=== PATIENT | female | born 1945 | race Caucasian/White ===

== ENCOUNTER → 2016-11-29 | Outpatient (CLI) | payer MEDICARE, OTHER ==
[~2016-11-29] MED LIST: BACITRACIN15 G1 TP; DAILY MULTIPLE1 EAC1 PO; HCTZ12.5 MG PO; NORCO 5-325 TA1 EACH PO; OMEGA-3 DPS1000 MG PO; PRESERVISION A1 EAC1 PO; VITAMIN D31000 UNIT PO; WELCHOL625 MG PO; ZETIA10 MG PO
== END | disposition home or self-care (01) ==
LOC: PTH.S 13:05
DX: Z01.818 Encounter for other preprocedural examination (principal); I10 Essential (primary) hypertension

== ENCOUNTER 2016-12-04 06:30 | Observation (INO) | payer MEDICARE, OTHER ==
[~2016-12-04] VITALS: Ht 160 cm; Wt 79.1 kg
--- NOTE | 2016-12-06 07:58 | OR ---
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 OPERATION: Right thyroid lobectomy. Excisional biopsy, left thyroid nodule. ANESTHESIA: General oral endotracheal. BLOOD LOSS: 30 mL. COMPLICATIONS: None. DRAINS: 7 mm Miguel Ángel-Laboy. DESCRIPTION OF PROCEDURE: With the patient in supine position under general endotracheal anesthesia, her eyes were taped. The neck was extended slightly. The anterior neck was prepped with ChloraPrep, allowed 3 minutes to dry. The patient was draped sterilely. Incision was made following natural skin crease low in the neck through skin, subcutaneous tissue, and platysma muscle with skin flaps elevated superiorly and inferiorly, subplatysmally. The strap muscles were then in the midline exposing the thyroid isthmus. The right thyroid lobe was then exposed by retraction of the strap muscles laterally. Blunt dissection was used to separate the tissues from the capsule of the thyroid, and small afferent and efferent vessels were treated by clamping and coagulation. During the dissection, the inferior and superior thyroid artery and vein and middle thyroid veins were identified, clamped, divided, and coagulated. The gland was rotated medially. Tissue consistent with both the superior and inferior parathyroid glands were identified and preserved during the dissection. The recurrent laryngeal nerve was identified, its identity and function confirmed by NIM-2 stimulation. The gland was pedicled at Lucien's ligament which was transected and the gland pedicled at the isthmus. The isthmus was transected with electrocautery, and the right lobe was sent for frozen section analysis. The wound was irrigated with saline. Hemostasis was assured by clamping and coagulation. Again, the recurrent laryngeal nerve was tested and its function was intact. Frozen section revealed the nodule to be most consistent with a benign follicular neoplasm. The left lobe was then exposed by palpation. The nodule was identified and it was excised from the surrounding thyroid tissue using electrocautery. The remainder of the lobe was left intact including the superior and inferior thyroid vessels. The nodule was sent for histologic ADMIT: 12/04/2016 RM/LOC: [facility] MR#: [id number] [address] [place] [id number] ROSY LEONARD [address] [place] [address] Operative/Delivery Room Report SEX: F AGE: 71 : 1945 examination by frozen section, which again, showed changes most consistent with benign follicular neoplasm. Therefore, the left lobe was not removed. The biopsy site was closed with two interrupted simple stitches of 3-0 chromic catgut. The wound was then closed over 7 mm Miguel Ángel-Laboy drain that was brought out the right side of strap muscles and incision. The strap muscles were closed in the midline with 3-0 catgut. The platysma layer closed with interrupted simple inverted 3-0 chromic catgut, and the skin was closed with a running horizontal mattress suture. The drain was sutured to the skin with silk, and the operation completed. A thyroid dressing applied. She tolerated the procedure very well. She emerged from general anesthesia in the operating room, was extubated in the operating room, and transferred to the recovery room in good condition. John Saravia MD/ eric JOB #: [id number] CC: John Saravia, Attending Physician Suzi Caraballo, Family Physician
[2016-12-06] MEDS ORDERED: ZETIA10 MG PO (08:28)
[2016-12-06] MEDS ORDERED: OMEGA-3 DPS1000 MG PO (08:28)
[2016-12-06] MEDS ORDERED: WELCHOL625 MG PO (08:28)
[2016-12-06] MEDS ORDERED: HCTZ12.5 MG PO (08:28)
[2016-12-06] MEDS ORDERED: VITAMIN D31000 UNIT PO (08:29)
[2016-12-06] MEDS ORDERED: DAILY MULTIPLE1 EAC1 PO (08:29)
[2016-12-06] MEDS ORDERED: PRESERVISION A1 EAC1 PO (08:29)
[2016-12-06] MEDS ORDERED: BACITRACIN15 G1 TP (08:30)
[2016-12-06] MEDS ORDERED: NORCO 5-325 TA1 EACH PO (08:30)
--- NOTE | 2016-12-18 10:16 | HP ---
ADMIT: 12/04/2016 RM/LOC: [facility] MR#: [id number] [address] [address] [place] [address] Pre-OP History and Physical SEX: F AGE: 71 : 1945 DATE OF SERVICE: HISTORY: Rosy is 71 years old. She is admitted for right thyroid lobectomy with frozen section and possible total thyroidectomy. She is found to have a thyroid nodule on CT scan of her chest which was performed in evaluation of an aortic aneurysm which was found to have been stable. The thyroid gland was ultimately evaluated by ultrasound, which showed bilateral thyroid nodules. A needle biopsy was performed of the right thyroid nodule with findings consistent with follicular neoplasm and atypia suspicious of papillary carcinoma. She has had no past radiation exposure, there is no family history of thyroid cancer, and she is euthyroid. The significance of the FNA findings were discussed. Excisional biopsy is recommended. We discussed the rationale and the risks, including risks of anesthesia, recurrent laryngeal nerve parathyroid gland postop dysfunction. We discussed resultant surgical scar and risk of general anesthesia, which she is in good understanding and acceptance of and admitted for general anesthesia. MEDICATIONS: Medications prior: 1. Welchol. 2. Zetia. 3. HCTZ. 4. Fish oil. 5. Vitamin D3. 6. PreserVision. 7. Multiple vitamins. ALLERGIES: PENICILLIN. PAST MEDICAL HISTORY: Surgery, lower back, for herniated disk, tonsillectomy, and ELVeS surgery for varicose veins. REVIEW OF SYSTEMS: Positive for history of asthma and hypertension. She has a stable thoracic aortic aneurysm. She has no known GI, , hematologic, or neurologic disorders. SOCIAL HISTORY: She drinks alcohol in the form of wine occasionally but does not drink caffeine, does not use tobacco. FAMILY HISTORY: No known anesthetic complications, coagulopathies, or chronic thyroid disease. PHYSICAL EXAMINATION: GENERAL: A 71-year-old, alert, cooperative, no acute distress. 5 feet 3-3/4 inches, weight 165 pounds. HEENT: Pupils are equal. Conjunctivae clear. No proptosis, nystagmus, nor lid retraction. Ear canals, TMs, and middle ears normal. Nose, mouth, pharynx clear. Larynx, good symmetry, structure, and function. NECK: No palpable masses or adenopathy. Thyroid nodules are nonpalpable. ADMIT: 12/04/2016 RM/LOC: [facility] MR#: [id number] [address] [address] ROSY LEONARD [address] [place] [address] Pre-OP History and Physical SEX: F AGE: 71 : 1945 LUNGS: Clear. HEART: Rhythm regular. EXTREMITIES: Normal. IMPRESSION: 1. Thyroid nodule, bilateral, with right thyroid nodule suspicious of papillary thyroid carcinoma by FNA. 2. History of asthma. 3. History of hypertension. 4. Thoracic aortic aneurysm, stable by recent CT scan evaluation. PLAN: Right thyroid lobectomy with frozen section, possible total thyroidectomy. John Saravia MD/ eric JOB #: [id number] CC: John Saravia, Attending Physician UNKNOWN, Family Physician
== END 2016-12-05 10:42 | disposition home or self-care (01) ==
LOC: WOR 06:30 → 6PED 06:30 → WOR 06:30 → 6PED 06:30
PROVIDERS: ADMIT Otolaryngology
DX: E04.2 Nontoxic multinodular goiter (principal); I10 Essential (primary) hypertension; J45.909 Unspecified asthma, uncomplicated; J44.9 Chronic obstructive pulmonary disease, unspecified; Z98.890 Other specified postprocedural states; Z88.0 Allergy status to penicillin; Z79.899 Other long term (current) drug therapy